=== PATIENT | female | born 1975 | race Caucasian/White ===

== ENCOUNTER → 2017-04-10 | Outpatient (CLI) | payer BC ==
[~2017-04-10] MED LIST: BCPILLS PO; CEPH500C2 PO; CETI10TA10 PO
--- NOTE | 2017-04-10 15:57 | DIAGNOSTIC IMAGING REPORT ---
LEFT ANKLE MIN 3 VIEWS ROUTINE, LEFT FOOT MIN 3 VIEWS ROUTINE CLINICAL HISTORY: Left ankle and foot swelling. COMPARISON STUDY: None. FINDINGS: Soft tissue swelling within the left ankle. No fracture or dislocation. The ankle mortise and Lisfranc joint are intact. No radiopaque foreign bodies. IMPRESSION: Soft tissue swelling within the left ankle. No fracture or dislocation within the left ankle or left foot. Electronically signed by: Jesus Manuel Jarrell M.D. 04/10/2017 3:56 PM Dictated Date/Time: 04/10/2017 3:53 PM
== END | disposition home or self-care (01) ==
LOC: C.RAD1850 15:34
PROVIDERS: ATTEND Student in an Organized Health Care Education/Training Program
DX: M25.572 Pain in left ankle and joints of left foot (principal)

== ENCOUNTER 2017-05-31 06:12 | Emergency (ER) | payer BC ==
[~2017-05-31] VITALS: Ht 165.1 cm; Wt 114.6 kg
[2017-05-31 06:14] VITALS: TEMP 37; Ht 165.1 cm; Wt 114.6 kg
[2017-05-31] MEDS ORDERED: BCPILLS PO (06:35)
[2017-05-31] MEDS ORDERED: CETI10TA10 PO (06:35)
--- NOTE | 2017-05-31 06:48 | EMERGENCY ROOM VISIT NOTE ---
ED Visit Note First contact with patient: 06:32 CHIEF COMPLAINT: Infection right groin HISTORY OF PRESENT ILLNESS: This 42-year-old female patient noticed a hard tender area in right groin region yesterday.. She states it kept her up all night due to the pain. She thinks that it opened up on the way here this morning. The patient states she gets small ones intermittently but has never had to have any drain. The patient denies any history of MRSA. No fever, chills, or loss of appetite. REVIEW OF SYSTEMS: 6 system review was performed and was negative unless stated otherwise in history of present illness. PMH: The patient is healthy; tonsillectomy, , D&C SOCIAL HISTORY: Patient lives with family. Admits to alcohol use PHYSICAL EXAM: Vital Signs:were reviewed. Reviewed Nurse's notes. GENERAL: 42- year-old white female appears in no acute distress. MENTAL Status: Alert and oriented 3. GROIN: There is an indurated area in the right groin which is now open and draining purulent fluid. There is no surrounding erythema. LUNGS: Clear to auscultation without wheezes rales or rhonchi. CARDIAC: Regular rate and rhythm without murmur. EMERGENCY DEPARTMENT COURSE: The patient was evaluated. A culture was obtained from the drainage. A bandage was applied. The patient was discharged home in stable condition. DIAGNOSIS: Abscess of the rt groin DISCHARGE INSTRUCTIONS & TREATMENT: Ibuprofen 600 mg every 6 hours with food for pain. Wear loose fitting clothes. Change the dressing as needed. Warm compresses several times a day to promote draining. Cephalexin, 500 mg 4 times a day for 10 days. Return if any problems such as fever or increasing pain. Current/Historical Medications Scheduled Control Pills ( Control Pills), 1 TAB PO DAILY Cetirizine Hcl (Zyrtec), 10 MG PO DAILY Allergies Coded Allergies: POLLEN (Verified Allergy, Intermediate, ITCHY EYES, RUNNY NOSE, SNEEZING, 05/31/17) Vital Signs Date Time Temp Pulse Resp B/P (MAP) Pulse Ox O2 Delivery O2 Flow Rate FiO2 05/31/17 06:14 37.0 119 20 143/100 95 Room Air Departure Information Referrals No Doctor, Assigned (PCP) Patient Instructions [facility]
[2017-05-31] MEDS ORDERED: CEPH500C2 PO (06:50)
[2017-05-31 07:02] VITALS: BP 138/98; PULSE 95; O2SAT 96
== END 2017-05-31 07:03 | disposition home or self-care (01) ==
LOC: C.EDB 06:12 → C.EDA 07:03
DX: L02.214 Cutaneous abscess of groin (principal); Z79.3 Long term (current) use of hormonal contraceptives; Z79.899 Other long term (current) drug therapy

== ENCOUNTER → 2017-09-17 | Outpatient (CLI) | payer BC ==
[~2017-09-17] MED LIST changes: -CEPH500C2 PO
== END | disposition home or self-care (01) ==
LOC: C.PAPS 10:07
PROVIDERS: ATTEND Obstetrics & Gynecology
DX: Z01.419 Encounter for gynecological examination (general) (routine) without abnormal findings (principal); Z11.51 Encounter for screening for human papillomavirus (HPV)

== ENCOUNTER → 2017-11-06 | Outpatient (CLI) | payer BC ==
--- NOTE | 2017-11-06 16:00 | MAMMOGRAPHY REPORT ---
BILATERAL DIGITAL SCREENING MAMMOGRAM TOMOSYNTHESIS WITH CAD: 11/06/2017 CLINICAL HISTORY: Routine screening. Patient has no complaints. TECHNIQUE: Breast tomosynthesis in addition to standard 2D mammography was performed. Current study was also evaluated with a Computer Aided Detection (CAD) system. COMPARISON: Comparison is made to exam dated: 05/24/2016 mammogram - [facility]. BREAST COMPOSITION: There are scattered areas of fibroglandular density in both breasts. FINDINGS: No suspicious masses, calcifications, or areas of architectural distortion are noted in ei ther breast. There has been no significant interval change compared to prior exams. IMPRESSION: ACR BI-RADS CATEGORY 1: NEGATIVE There is no mammographic evidence of malignancy. A 1 year screening mammogram is recommended. The pa tient will receive written notification of the results. Approximately 10% of breast cancers are not detected with mammography. A negative mammographic report should not delay biopsy if a clinically suggestive mass is present. Cathi Cagle M.D. ah/:11/06/2017 11:43:10 Supervisory Investigative Specialist: Audrey Real, [facility] letter sent: Normal 1/2 BI-RADS Code: ACR BI-RADS Category 1: Negative
== END | disposition home or self-care (01) ==
LOC: C.MAMM 09:39
PROVIDERS: ATTEND Obstetrics & Gynecology
DX: Z12.31 Encounter for screening mammogram for malignant neoplasm of breast (principal)